=== PATIENT | male | born 1985 | race Caucasian/White ===

== ENCOUNTER → 2019-03-24 | Outpatient (CLI) | payer BC ==
[~2019-03-24] MED LIST: AMOX500 PO; AZIT250 PO; CEPH500 PO; CODGUAEL PO; CRUTCH2 USE; HYDACE5 PO; LORA10ER PO; RXCODGUASY PO
== END | disposition home or self-care (01) ==
LOC: LAB SHORT 12:05 → PLD 12:05
DX: L72.8 Other follicular cysts of the skin and subcutaneous tissue (principal)
CPT/HCPCS: 88304

== ENCOUNTER → 2020-04-10 | Outpatient (CLI) | payer BC | END | disposition home or self-care (01) | LOC: LAB 11:28 → LAB SHORT 11:28 | DX: J02.9 Acute pharyngitis, unspecified (principal) | CPT/HCPCS: 87081 ==

== ENCOUNTER → 2021-04-07 | Outpatient (CLI) | payer BC ==
[2021-04-09 17:48] LABS: CORONAVIRUS (COVID19) CSH-NRL Positive (Negative)
== END ==
LOC: LAB SHORT 18:14 → LAB 18:14
PROVIDERS: Physician Assistant
DX: U07.1 COVID-19 (principal)
CPT/HCPCS: U0003

== ENCOUNTER 2025-04-17 18:55 | Emergency (ER) | payer BC ==
[~2025-04-17] VITALS: Ht 193 cm; Wt 104.3 kg
[2025-04-17 19:17] VITALS: BP 110/85
== END 2025-04-17 21:30 | disposition home or self-care (01) ==
LOC: ER 18:55
DX: S61.311A Laceration without foreign body of left index finger with damage to nail, initial encounter (principal); W45.8XXA Other foreign body or object entering through skin, initial encounter
CPT/HCPCS: 12001; 73140; 99282-25